=== PATIENT | female | born 1985 | race Caucasian/White ===

== ENCOUNTER 2023-07-25 18:33 | Emergency (ER) | payer OTHER, SELFPAY ==
[2023-07-25] VITALS (8 sets, daily range): BP systolic 132; BP diastolic 86; PULSE 79–106; RESP 18; TEMP 36.4; O2SAT 95–100; BMI 38.6
--- NOTE | 2023-07-25 18:50 | ED_ITS ---
HPI - Abdominal Pain General Time Seen by Provider: 18:50 Date Seen: 07/25/23 Chief Complaint: Abdominal Pain Stated Complaint: stomach [id number] Time Seen by Provider: 07/25/23 18:36 Source: patient and RN notes reviewed Mode of arrival: ambulatory Limitations: no limitations History of Present Illness HPI narrative: This 37-year-old female is presenting to the ER accompanied by her with concern of abdominal pain, prior diarrhea now vomiting. Patient started on Ozempic about 6 weeks ago. There has also been to sick children in the house over the last 2 weeks. Her daughter had vomiting last Wednesday. She started with really watery diarrhea on Wednesday, continued into Wednesday, no blood seen. She was having abdominal cramping and feeling of a brick being on her stomach. She basically was in bed all day yesterday. She did take [id number] antidiarrheal yesterday. Since then she has had no stool production. About an hour ago she started vomiting. The vomiting initially did not relieve symptoms but she had subsequent vomiting just prior to coming in and now the abdominal pain has settled down some. She has been drinking up until the point that she started vomiting. She really has not ate at all through this. There have been no fevers. Her abdominal pain really is not bad right now. She has been feeling more epigastric symptoms. When she started the Ozempic, she noted she had significant constipation from it. Her only abdominal surgeries a history of a . She is actively currently menstruating right now. No travel. MD elicited complaint: abdominal pain Related Data Hx Last Menstrual Period: Currently menstruating Patient : No Home Medications Medication Instructions Recorded Confirmed albuterol 90 mcg/actuation aerosol mcg inhalation 07/25/23 inhaler bupropion HCl 150 mg 24 hr tablet, 150 mg PO DAILY 07/25/23 07/25/23 extended release (Wellbutrin XL) cetirizine 10 mg tablet (24Hour 10 mg PO DAILY PRN 07/25/23 07/25/23 Allergy) citalopram 20 mg tablet (Celexa) 10 mg PO DAILY 07/25/23 07/25/23 fluticasone propionate 110 1 inh inhalation BID 07/25/23 07/25/23 mcg/actuation HFA aerosol inhaler semaglutide 0.25 mg or 0.5 mg (2 0.25 mg subcut QWEEK 07/25/23 07/25/23 mg/3 mL) subcutaneous pen injector (Ozempic) spironolactone 25 mg tablet 12.5 mg PO DAILY 07/25/23 07/25/23 (Aldactone) Previous Rx's Medication Instructions Recorded ondansetron 4 mg disintegrating 4 mg PO Q6H PRN nausea and 07/25/23 tablet vomiting #20 tabs Allergies Allergy/AdvReac Type Severity Reaction Status Date / Time No Known Drug Allergies Allergy Verified 07/25/23 18:43 Review of Systems Status of ROS Reports: 6 or more systems reviewed and unremarkable except as noted in History and below PFSH PFS Social History Smoking Status: Never smoker Do you use any of these nicotine containing products: None How often do you have a drink containing alcohol: never AUDIT-C Alcohol total score: 0 Non-prescribed substance use: denies use Exam Const: Vital Signs, click to edit/add: Vital Signs - 24 hr 07/25/23 18:39 07/25/23 19:40 Temperature 97.6 F Pulse Rate [Right Pulse Oximeter] 106 H Respiratory Rate 18 Blood Pressure [Ri ght Upper Arm] 132/86 Pulse Oximetry 97 97 Oxygen Delivery Me thod Room Air This 37-year-old female is alert, interactive, no apparent distress. She is sitting up on the edge of the bed. Sclera clear, face atraumatic, speech normal. Lungs are clear, good air entry, no wheezing or crackles. CV regular but fast, no murmur, normal S1-S2, no S3 or S4. Abdomen is mildly distended but soft, very mild epigastric tenderness without rebound or guarding, does not extend over to the right upper quadrant. No masses noted. Bowel sounds really are not heard while listening. Patient is ambulatory into the ED of her own accord. Documenting provider has reviewed patient's vital signs: yes Course Course ED Course: Will establish an IV, give patient a L of IV fluids and 4 mg IV Zofran. She declines anything for pain management at this time. Discussed imaging, will proceed with CT abdomen pelvis with IV contrast to ensure no obstructive pathology. We did review plain imaging with flat and upright but given her symptoms, also being on Ozempic, feel it is prudent to initiate with the CT imaging. Pancreatitis can be a complication of some of these medicines, will get a full complement of labs including a lipase. The CT imaging will ensure that we are not missing any acute intra-abdominal pathology. Reevaluation(s) Time of Reevaluation #1: 20:28 Reevaluation #1: With nursing staff reported that patient is developing some hives, nasal congestion post CT contrast. Patient noted over there after the IV contrast that her arms and neck felt really itchy. She noted nasal congestion. Her eyes are feeling itchy like she has been exposed to cats, has a cat allergy. No difficulty breathing. She does have some audible nasal congestion but no facial swelling, lips are normal, speech is normal. See 3 small hives, 1 on her inner upper left arm, 2 on her chest. Lungs are clear, good air entry, no wheezing or crackles. CV regular rate and rhythm, no murmur. Have ordered 50 mg IV Benadryl, 20 mg IV Pepcid and 125 mg Solu-Medrol. We did discuss that we would label her as CT IV contrast allergy. We did review that her labs are normal including the lipase. We are waiting her CT imaging to be read. Time of Reevaluation #2: 20:44 Reevaluation #2: Reviewed CT report and brought her a copy. There is no bowel changes that looked to be consistent like a gastroenteritis or enteritis that is seen. I suspect her symptoms may be coming from the Ozempic. She actually took it on Wednesday, symptoms started after that. I would favor hurt not using this medicine again but will ultimately defer to her primary provider. She should seek conversation or follow-up appointment with them. Will also give her dose of oral Zyrtec to help cover for recurrent allergic symptoms. Have reviewed with her that IV contrast certainly should be filtered relatively quickly, do expected to be out of her system within 24 hours at the latest. She does have Zyrtec at home, is aware that she might need to take some repeat Benadryl if recurrent hives overnight. Vital Signs Vital signs: Initial Vital Signs Temperature 97.6 F 07/25/23 18:39 Temperature Source Temporal Artery Scan 07/25/23 18:39 Pulse Rate 106 H 07/25/23 18:39 Respiratory Rate 18 07/25/23 18:39 Blood Pressure 132/86 07/25/23 18:39 Blood Pressure Mean 101 07/25/23 18:39 Blood Pressure Position Sitting 07/25/23 18:39 Pulse Oximetry 97 07/25/23 18:39 Oxygen Delivery Method Room Air 07/25/23 18:39 Vital Signs Temperature 97.6 F 07/25/23 18:39 Pulse Rate 106 H 07/25/23 18:39 Respiratory Rate 18 07/25/23 18:39 Blood Pressure 132/86 07/25/23 18:39 Pulse Oximetry 97 07/25/23 18:39 Oxygen Delivery Method Room Air 07/25/23 18:39 Temperature 97.6 F 07/25/23 18:39 Pulse Rate 106 H 07/25/23 18:39 Respiratory Rate 18 07/25/23 18:39 Blood Pressure 132/86 07/25/23 18:39 Pulse Oximetry 97 07/25/23 19:40 Oxygen Delivery Method Room Air 07/25/23 18:39 Medications Administered Medications: Generic Name Dose Route Start Last Admin Trade Name Julio Césarq PRN Reason Stop Dose Admin Cetirizine HCl 10 mg 07/25/23 20:39 07/25/23 20:48 Cetirizine Hcl 10 Mg Tablet PO 07/25/23 20:40 10 mg DAILY ONE Administration Diphenhydramine HCl 50 mg 07/25/23 20:26 07/25/23 20:28 Diphenhydramine 50 Mg/Ml Inj IVP 07/25/23 20:27 50 mg ONCE ONE Administration Discontinued Medications Generic Name Dose Route Start Last Admin Trade Name Brice PRN Reason Stop Dose Admin Sodium Chloride 1,000 mls @ 1,000 mls/hr 07/25/23 18:59 07/25/23 19:15 0.9 % Sodium Chloride 1000 Ml IV 07/25/23 19:58 1,000 mls/hr .Q1H DEMETRIA Administration Ondansetron HCl 4 mg 07/25/23 18:58 07/25/23 19:20 Ondansetron 2 Mg/Ml Inj IVP 07/25/23 18:59 4 mg ONCE ONE Administration MDM - Abdominal Pain Lab Data Attestation: I reviewed the patient's lab results. Labs: Lab Results 07/25/23 Range/Units 19:08 WBC 8.79 (4.50-11.00) K/uL RBC 5.41 H (4.00-5.20) m/uL Hgb 14.0 (12.0-16.0) gm/dL Hct 44.1 (33.0-51.0) % MCV 82 (80-100) fL MCH 26 (26-34) pg MCHC 32 (32-36) gm/dL RDW Coeff of Elisa 12.9 (11.5-15.5) % Plt Count 323 (140-440) K/uL Neut % (Auto) 65.6 (42.0-72.0) % Lymph % (Auto) 18.4 L (20-44) % [place] % (Auto) 6.1 (0.0-11.0) % Eos % (Auto) 9.4 H (0.0-7.0) % Baso % (Auto) 0.2 (0.0-3.0) % Neut # (Auto) 5.75 (1.7-7.0) K/uL Lymph # (Auto) 1.60 (0.90-2.90) K/uL [place] # (Auto) 0.50 (0.00-0.90) K/UL Eos # (Auto) 0.80 H (0.00-0.50) K/uL Baso # (Auto) 0.02 (0.00-0.30) K/uL Abs Immat Gran (auto) 0.03 (0.00-0.30) K/uL Imm/Tot Granulo (auto) 0.3 % Sodium 139 (135-149) mmol/L Potassium 3.9 (3.6-5.1) mmol/L Chloride 103 (96-114) mmol/L Carbon Dioxide 25 (20-32) mmol/L Anion Gap 11 (7-15) mEq/L BUN 14 (5-24) mg/dL Creatinine 0.9 (0.5-1.5) mg/dL Estimated Creat Clear 73.90 Estimated GFR 84 ml/min Glucose 100 (60-115) mg/dL Lactate 0.7 (0.5-1.9) mmol/L Calcium 9.2 (8.4-10.6) mg/dL Total Bilirubin 0.4 (0.1-1.5) mg/dL Direct Bilirubin 0.2 (0.0-0.5) mg/dL AST 20 (12-35) U/L ALT 17 (4-35) U/L Alkaline Phosphatase 84 (40-150) U/L C-Reactive Protein 1.6 H (0.5-1.0) mg/dL Total Protein 8.3 (6.0-8.3) g/dL Albumin 4.6 (3.3-5.0) g/dL Lipase 131 (23-300) U/L Imaging Data CT scan - abdomen: Attestation: I have reviewed the pertinent imaging results. Radiologist's impression: Patient: MAYANK MORATAYA Facility:?[facility] Patient ID:?[id number] Site Patient ID:?[id number]. Site :?[id number] Study:?CT Abdomen/Pelvis with 100cc [id number] contrast-07/25/2023 8:05:48 PM Ordering Physician:Jay Avalos Final Report: INDICATION: Abdominal pain. TECHNIQUE: Multiplanar CT examination of the abdomen and pelvis were acquired after the administration of 100 mL Isovue 370 intravenously. COMPARISON: None. FINDINGS: Lower chest: Linear bandlike opacifications of the lung bases likely due to subsegmental atelectasis and/or scarring. No focal consolidation. Normal heart size. No pleural effusions or pneumothorax. Liver: Normal. Gallbladder: Normal. Biliary: No biliary ductal dilitation. Pancreas: Normal. Spleen: Normal. Adrenal Glands: Normal. Kidneys: Normal size and symmetrically enhancing. No obstructive calculi or hydronephrosis. Ureters: Unremarkable. Bladder: Unremarkable. Bowel: No obstruction or bowel wall thickening. The appendix is normal. No significant colonic diverticulosis. Pelvic organs: Menstrual cup in place. Otherwise, unremarkable. Peritoneum: No free fluid or pneumoperitoneum. Vessels: Normal. Portal vein remains patent. No significant atherosclerotic disease. Lymph Nodes: No lymphadenopathy. Abdominal Wall/Soft Tissues: Unremarkable. Bones: Unremarkable. IMPRESSION: No acute abdominopelvic pathology. The etiology of the patient`s symptoms are not elucidated on this examination. Please note that all CT scans at this facility use dose modulation, iterative reconstruction, and/or weight-based dosing when appropriate to reduce radiation dose to as low as reasonably achievable. Dictated by Juan Osborn MD @ 07/25/2023 8:35:15 PM (Electronic Signature) Discharge Plan Discharge Clinical Impression: Nausea, vomiting, and diarrhea Allergic reaction Qualifiers: Encounter type: initial encounter Qualified Code(s): T78.40XA - Allergy, unspecified, initial encounter Abdominal pain Qualifiers: Abdominal location: epigastric Qualified Code(s): R10.13 - Epigastric pain Patient Disposition: Home, Self-Care Condition: Stable Instructions: General Allergic Reaction (ED) Additional Instructions: Continue with your daily Zyrtec, this should help with any residual reaction that you might have tomorrow. May need to use some Benadryl per package instructions if any return of mild symptoms. If you have severe symptoms such is oral or facial swelling, difficulty breathing, throat swelling, need emergent evaluation. This level of reaction is not likely to happen but do need you to seek re-evaluation if by some chance you would have a rebound severe reaction. As for your stomach symptoms, I do suspect that this might be because of the Ozempic. I would favor not taking this any longer but ultimately defer to your primary provider. The fact that the symptoms started Wednesday after dosing, there is absolutely no CT evidence of any gastroenteritis or enteritis within the bowels, does suggest the Ozempic as the culprit. Will send in Zofran to be further used if any ongoing nausea. You may have ongoing symptoms if this is the Ozempic and tell it wears out of your system. If you do take the next does on Wednesday and these current symptoms are from the Ozempic, can expect similar reaction. I ultimately think you should follow your primary care provider's instructions. If you have worsening abdominal symptoms, cannot keep fluids in despite Zofran use, develops fever, do need to be re-evaluated. Do recommend Ty lenol and ibuprofen per bottle directions for discomfort. Activity Level: Activity as Tolerated Prescriptions: New ondansetron 4 mg tablet,disintegrating 4 mg PO Q6H PRN (Reason: nausea and vomiting) Qty: 20 0RF No Action albuterol 90 mcg/actuation aerosol inhalation fluticasone propionate 110 mcg/actuation HFA aerosol inhaler 1 inh inhalation BID spironolactone [Aldactone] 25 mg tablet 12.5 mg PO DAILY citalopram [Celexa] 20 mg tablet 10 mg PO DAILY bupropion HCl [Wellbutrin XL] 150 mg tablet extended release 24 hr 150 mg PO DAILY Ozempic 0.25 mg or 0.5 mg (2 mg/3 mL) pen injector 0.25 mg subcut QWEEK Rx Instructions: for 4 weeks cetirizine [24Hour Allergy] 10 mg tablet 10 mg PO DAILY PRN Follow Up/Referrals: Erma Hoskins MD [Primary Care Provider] - Stand Alone Forms: Virtual 3-D Display for Smart[employer] Info Instructions
--- NOTE | 2023-07-25 18:58 | CRLHL7_ITS ---
For Patients: As a result of the Century Cures Act, medical imaging exams and procedure reports are released immediately into your electronic medical record. You may view this report before your referring provider. If you have questions, please contact your health care provider. INDICATION: Abdominal pain. TECHNIQUE: Multiplanar CT examination of the abdomen and pelvis were acquired after the administration of 100 mL Isovue 370 intravenously. COMPARISON: None. FINDINGS: Lower chest: Linear bandlike opacifications of the lung bases likely due to subsegmental atelectasis and/or scarring. No focal consolidation. Normal heart size. No pleural effusions or pneumothorax. Liver: Normal. Gallbladder: Normal. Biliary: No biliary ductal dilitation. Pancreas: Normal. Spleen: Normal. Adrenal Glands: Normal. Kidneys: Normal size and symmetrically enhancing. No obstructive calculi or hydronephrosis. Ureters: Unremarkable. Bladder: Unremarkable. Bowel: No obstruction or bowel wall thickening. The appendix is normal. No significant colonic diverticulosis. Pelvic organs: Menstrual cup in place. Otherwise, unremarkable. Peritoneum: No free fluid or pneumoperitoneum. Vessels: Normal. Portal vein remains patent. No significant atherosclerotic disease. Lymph Nodes: No lymphadenopathy. Abdominal Wall/Soft Tissues: Unremarkable. Bones: Unremarkable. IMPRESSION: No acute abdominopelvic pathology. The etiology of the patient`s symptoms are not elucidated on this examination. Please note that all CT scans at this facility use dose modulation, iterative reconstruction, and/or weight-based dosing when appropriate to reduce radiation dose to as low as reasonably achievable. Dictated by Juan Osborn MD @ 07/25/2023 8:35:15 PM (Electronically Signed)
[2023-07-25 19:15] LABS: Lactate* 0.7 mmol/L (0.5-1.9)
[2023-07-25] MEDS: 0.9 % SODIUM CHLORIDE 1000 ml 1,000 ML IV (19:15)
[2023-07-25 19:17] LABS: Basophils Absolute Auto 0.02 K/uL (0.00-0.30); Basophils Percent Auto 0.2 % (0.0-3.0); Eosinophils Percent Auto 9.4 % (0.0-7.0); Hematocrit 44.1 % (33.0-51.0); Immature Granulocytes Abs Auto 0.03 K/uL (0.00-0.30); Immature Granulocytes Pct Auto 0.3 %; Lymphocytes Percent Auto 18.4 % (20-44); Mean Corpuscular HGB Conc 32 gm/dL (32-36); Mean Corpuscular Hemoglobin 26 pg (26-34); Mean Corpuscular Volume 82 fL (80-100); Monocytes Percent Auto 6.1 % (0.0-11.0); Neutrophils Absolute Auto 5.75 K/uL (1.7-7.0); Neutrophils Percent Auto 65.6 % (42.0-72.0); Platelet Count* 323 K/uL (140-440); RDW Coefficient of Variation % 12.9 % (11.5-15.5); Red Blood Count 5.41 m/uL (4.00-5.20); White Blood Count* 8.79 K/uL (4.50-11.00)
[2023-07-25] MEDS: ONDANSETRON 2 MG/ML inj 4 MG IVP (19:20)
[2023-07-25 19:22] LABS: Slide Review Reflex No
[2023-07-25 19:32] LABS: Albumin* 4.6 g/dL (3.3-5.0); Chloride* 103 mmol/L (96-114)
[2023-07-25 19:33] LABS: Potassium* 3.9 mmol/L (3.6-5.1); Sodium* 139 mmol/L (135-149)
[2023-07-25 19:35] LABS: Creatinine* 0.9 mg/dL (0.5-1.5); Estimated Glomerular Filt Rate 84 ml/min
[2023-07-25 19:36] LABS: Alanine Aminotransferase* 17 U/L (4-35); Alkaline Phosphatase* 84 U/L (40-150); Anion Gap 11 mEq/L (7-15); Aspartate Amino Transferase* 20 U/L (12-35); Bilirubin Direct* 0.2 mg/dL (0.0-0.5); Bilirubin Total* 0.4 mg/dL (0.1-1.5); Blood Urea Nitrogen* 14 mg/dL (5-24); Calcium* 9.2 mg/dL (8.4-10.6); Carbon Dioxide* 25 mmol/L (20-32); Glucose* 100 mg/dL (60-115); Lipase* 131 U/L (23-300); Total Protein* 8.3 g/dL (6.0-8.3)
[2023-07-25 19:39] LABS: C Reactive Protein* 1.6 mg/dL (0.5-1.0)
--- OUTSIDE RECORDS SUMMARY | 2023-07-25 19:44 | XMS_ITS | Clinical Summary ---
Author Name Unknown Organization [facility] Address [place], [place] [address] Care Team Providers Care Mincing Machine Operator Name Role Phone Erma Hoskins MD Primary Care Provider [phone] Allergies No known active allergies Medications Medication Sig Dispensed Refills Start Date End Date Status cetirizine (ZYRTEC) 10 mg tablet Take 1 tablet by mouth once daily. 0 01/30/2020 Active CPAPIndications:PAULETTE (obstructive sleep apnea) CPAP machine for home use at pressure 4-12 cmw, nasal mask x1/3month with nasal cushion x2/mo 1 Each 11 12/01/2021 Active Olopatadine 0.6 % nasal spray INSTILL 1-2 SPRAYS IN EACH NOSTRIL TWICE A DAY 0 02/20/2022 Active fluticasone propionate (Flovent HFA) 44 mcg/Actuation inhalerIndications: Mild intermittent asthma, unspecified whether complicated Inhale 1 Puff by mouth two times daily. 31.8 Each 3 01/07/2023 Active levonorgestrel-ethi nyl estrad, 0.1mg-20mcg, (ALESSE-28) 0.1-20 mg-mcg tabletIndications:E ncounter for counseling regarding contraception Take 1 Tablet by mouth once daily. 84 Tablet 3 01/07/2023 Active spironolactone (ALDACTONE) 25 mg tabletIndications:H irsutism,Acne, unspecified acne type Take 1 Tablet (25 mg) by mouth every morning. 90 Tablet 3 01/07/2023 Active albuterol HFA (PRO-AIR; VENTOLIN; PROVENTIL) 90 mcg/actuation inhalerIndications: Moderate persistent asthma without complication INHALE 2 PUFFS BY MOUTH EVERY 4 HOURS IF NEEDED FOR SHORTNESS OF BREATH OR WHEEZING. 17 Each 1 04/06/2023 Active buPROPion (WELLBUTRIN XL) 150 mg Extended-Release tabletIndications:A nxiety and depression,BMI 36.0-36.9,adult Take 1 Tablet (150 mg) by mouth every morning. 90 Tablet 3 06/29/2023 Active citalopram (CELEXA) 20 mg tabletIndications:A nxiety and depression Take 1 Tablet (20 mg) by mouth every morning. 90 Tablet 3 06/29/2023 Active citalopram (CELEXA) 20 mg tabletIndications:A nxiety and depression Take 1 Tablet (20 mg) by mouth every morning. 90 Tablet 0 05/24/2023 4 Discontinue d(Reorder (E-cancel not sent)) buPROPion (WELLBUTRIN XL) 150 mg Extended-Release tabletIndications:A nxiety and depression,BMI 36.0-36.9,adult Take 1 Tablet (150 mg) by mouth every morning. 30 Tablet 1 05/24/2023 4 Discontinue d(Reorder (E-cancel not sent)) Active Problems Problem Noted Date Diagnosed Date Pap smear for cervical cancer screening 02/06/20 23 Overview: 12/2022 NIL/HPV Negative Plan: Pap and HPV due 12/2027 Deviated septum 12/01/2021 PAULETTE 08/12/2021 AHI-24 12/01/2021 Moderate persistent asthma without complication 08/13/2021 Encounters Date Type Department Care Team Description 06/29/2023 2:00 PM [employer] OFFICER Telemedicine [facility] [address] [place], [place] [id number] Erma Hoskins MD Medication Management 06/29/2023 Travel from Last 3 Months Immunizations Name Administration Dates Next Due AMB Influenza, IIV4 PF (=>6 mos Flulaval,Fluzone Fluarix)(Flu Clinic Only) 03/19/2020 COVID-19 vaccine (Moderna 100mcg/0.5mL) PF, MDV 2020,08/29/2020 COVID-19 vaccine ([employer] NTTravelLine 30mcg/0.3mL) 12YO+ BIVALENT PF, MDV 03/05/2022 DTP 12/11/1997, 1,11/04/1987,1985,02/02/1986,1985 HIB PRP-T (ActHIB,Hiberix) 11/04/1987 Hepatitis B (Peds) 08/08/1998,01/11/1998, 998 Human Papilloma Virus Vaccine 06/30/2011, 011,08/29/2010 Influenza Virus, Unspecified 03/01/2019, 03/07/2018,05/08/2016,2014,06/01/2014,04/22/2007 Influenza, IIV3 (Age 6-35 mos) 04/09/2009 Influenza, IIV3 (Age >=3 years) 04/08/2010,06/02,06/01/2000 Influenza, IIV4 03/05/2022 Influenza, IIV4 (Age 6-35 Mos) 03/17/2017 MMR 10/20/2015,12/11/1997,01/14/1987 Oral Polio Vaccine 10/04/1990, 8,04/03/1986,1985 Pneumococcal Poly,23-Valent (Pneumovax) 03/17/2017 Pneumococcal conj 13-Valent (Prevnar 13) 07/21/2016 Td (Age >=7 Years) 12/11/1997 Tdap 06/10/2018,08/16/2015 Varicella Vaccine 10/19/1987 Family History Medical History Relation Name Comments Heart Disease Father Lung cancer Father Cancer-breast Mother Coronary artery disease Mother had bypass Good Health Sister Cancer-ovarian No Family History Thyroid cancer No Family History Relation Name Status Comments Father Mother Sister Social History Tobacco Use Types Packs/Day Years Used Date Smoking Tobacco: Former Smokeless Tobacco: Never Tobacco Cessation:Counseling Given: Yes Alcohol Use Standard Drinks/Week Comments Yes 0 (1 standard drink = 0.6 oz pur e alcohol) rare PHQ-2 Answer Date Recorded PHQ-2 TOTAL SCORE 0 06/30/2023 Social Connections Answer Date Recorded Frequency of Communication with Friends and Fami ly 0 01/04/2023 Financial Resource Strain Answer Date R ecorded Difficulty of Paying Living Expenses 3 01/04/2023 Difficulty of Paying Living Expenses Not on file 01/04/2023 Food Insecurity Answer Date Recorded Worried About Running Out of Food in the Last Ye ar 1 01/04/2023 Transportation Needs Answer Date Record ed Lack of Transportation (Medical) 1 01/04/2023 Housing Stability Answer Date Recorded Unable to Pay for Housing in the Last Year 1 01/04/2023 Sex and Gender Information Value Date Recorded Sex Assigned at Not on file Gender Identity Not on file Sexual Orientation Not on file Obstetrics History Para Term AB IAB SAB Ectopic Multiple Livin g Live Births 3 3 3 3 3 Date Outcome GA Total Labor Labor/2nd/3rd Weight Sex Delivery Anes PTL Giselle A1 A5 Name Cl in 11/28 Term 39w 0d 4.45 kg (9 lb 13 oz) M CS-LTranv Epidu ral N Cyndie ng Shon Complications:Failure to Pro esteban in Second Stage,Chorioamnionitis,Hypertension Delivery Location:[facility] a 10/18 Term 38w 5d 2h 09m 0h 55m/1h 04m/0h 10m 3.17 kg (6 lb 15.8 oz) F Epidu ral Cyndie ng 9 9 Sharon Cota CNM Complications:None [facility] 08/26 Term 39w 0d 2h 28m 2h 05m/0h 19m/0h 04m 3.63 kg (8 lb) M Vag-Force ps Epidu ral Cyndie ng 7 8 MORATAYA, BABY RACHE L Thania Summers CNM Delivery Location:[facility] ( ([facility]) Last Filed Vital Signs Vital Sign Reading Time Taken Comments Blood Pressure 120/76 01/07/2023 4:07 PM CDT Pulse 89 01/07/2023 4:07 PM CDT Temperature 36.8 ??C (98.3 ??F) 09/08/2021 1 1:33 AM CDT Respiratory Rate - - Oxygen Saturation 97% 01/07/2023 4:07 PM CDT Inhaled Oxygen Concentration - - Weight 106.2 kg (234 lb 3.2 oz) 01/07/2023 4:07 PM CDT Height 165.1 cm (5' 5) 01/07/2023 4:07 PM CDT Body Mass Index 38.97 01/07/2023 4:07 PM CDT Plan of Treatment Health Maintenance Due Date Last Done Comments HIV for age 15-65 2000 COVID-19 vaccine series (2022- season) 2023 03/05/2022, 06/18/2021, 2020, Additional history exists Influenza for age 9-49 02/19/2023 , 03/19/2020, 03/01/2019, Additional history exists BMI (ht and wt on same day) for age 18+ 01/08/2024 01/07/2023, 03/05/2022, 12/03/2021, Additional history exists Depression screening for age 12+ 01/08/2024 01/07/2023, 06/23/2022, 03/05/2022, Additional history exists Pap test for age 21-65 01/08/2028 , 01/07/2023, 02/04/2018 (Verified in Care Everywhere or Patient Record) Tetanus booster 06/10/2028 06/10/2018, 07/23, 12/11/1997 Pneumococcal series for age 6-64 (3 of 3 - PPSV23 or PCV20) 2050 03/17/2017, 07/21/2016 Tdap Completed 06/10/2018, 08/16/2015 Hepatitis C screening for ag e 18-79 Completed 12/03/2021 Care Teams Mincing Machine Operator Relationship Specialty Start Date End Date Erma Hoskins MD [address] [place] [id number] PCP - General Family Practice 10/31/20
[2023-07-25] MEDS: diphenhydrAMINE 50 MG/ML inj IVP (20:28)
[2023-07-25] MEDS: METHYLPREDNISOLONE SOD SUCC 62.5 MG/ML (125) 125 MG IVP (20:45)
[2023-07-25] MEDS: FAMOTIDINE 10 MG/ML inj 20 MG IVP (20:45)
--- NOTE | 2023-07-25 20:45 | ED.NURSE ---
after returning from CT, telegraphic typewriter installer was rounding on the pt when the pt stated that they were I am feeling congested and noticed I think I have 2 hives since i got back from the CT scan. pt denied difficulty breathing, feeling of their tongue swelling, or that their throats was closing or difficultly swallowing. telegraphic typewriter installer notified MD immediately. MD gave verbal order to give 50 mg IV Benadryl. telegraphic typewriter installer pulled med and gave. more medication orders followed See EMAR.
[2023-07-25] MEDS: CETIRIZINE HCL 10 MG TABLET PO (20:48)
--- NOTE | 2023-07-25 21:10 | ED.NURSE ---
at discharge pt denied being itchy, having any difficultly breathing, and difficulty swallowing. pt stated except for a little congestion, which is much better, I don't have any of the symptoms play writer went through MD discharge instruction in detail about signs, symptoms and interventions, when to come back and when to call 911 with pt and spouse. Both verbalized understanding and agreed follow thought on MD instructions.
== END 2023-07-25 21:20 | disposition home or self-care (01) ==
PROVIDERS: Emergency Provider Family Medicine; PCP Family Medicine
DX: R11.2 Nausea with vomiting, unspecified (principal); R19.7 Diarrhea, unspecified; R10.9 Unspecified abdominal pain; L50.9 Urticaria, unspecified; T50.8X5A Adverse effect of diagnostic agents, initial encounter
CPT/HCPCS: 36415; 74177; 80053; 82248; 83605; 83690; 85025; 86140; 94761; 96361; 96374; 96375; 99284; 99285; A9270; J1200; J2405; J2930; J7030; Q9967; S0028